=== PATIENT | male | born 1945 | race African-American/Black ===

== ENCOUNTER 2020-05-01 15:44 | Emergency (ER) | payer MEDICARE, MEDICAID ==
[~2020-05-01] VITALS: Ht 185.4 cm; Wt 78.0 kg
[2020-05-01] MEDS ORDERED: TRAMADOL 50MG TABLET PO ONE (18:15)
[2020-05-01 19:09] VITALS: BP 157/82
== END 2020-05-01 18:45 | disposition home or self-care (01) ==
LOC: ER 15:44
DX: M54.2 Cervicalgia (principal); M54.5 Low back pain; I10 Essential (primary) hypertension; V43.52XA Car driver injured in collision with other type car in traffic accident, initial encounter; Y93.89 Activity, other specified; Y92.488 Other paved roadways as the place of occurrence of the external cause
CPT/HCPCS: 71250; 72100; 99285